=== PATIENT | male | born 1980 | race Caucasian/White ===

== ENCOUNTER 2018-07-03 18:01 | Outpatient (CLI) ==
[2018-07-03 18:21] VITALS: BMI 26.9
== END 2018-07-03 18:09 | disposition short-term general hospital (02) ==
LOC: AMBL 18:01
PROVIDERS: ATTEND Emergency Medicine
DX: M54.5 Low back pain (principal); R51 Headache; S00.91XA Abrasion of unspecified part of head, initial encounter; R07.89 Other chest pain; V89.2XXA Person injured in unspecified motor-vehicle accident, traffic, initial encounter; Z87.820 Personal history of traumatic brain injury

== ENCOUNTER 2018-07-03 18:15 | Emergency (ER) ==
[2018-07-03 18:21] VITALS: BP 145/94; TEMP 97.6; BMI 26.9
[2018-07-03] MEDS ORDERED: SODIUM CHLORIDE 1,000 ML IV STA (18:40)
[2018-07-03] MEDS ORDERED: TENIVAC IM ONE (18:44)
[2018-07-03] MEDS ORDERED: TORADOL IVP STA (18:45)
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
[2018-07-03] MEDS ORDERED: PERCOCET 10-325 PO STA (20:34)
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
== END 2018-07-03 21:20 | disposition home or self-care (01) ==
LOC: ED 18:15
DX: M54.5 Low back pain (principal); M53.3 Sacrococcygeal disorders, not elsewhere classified; V89.2XXA Person injured in unspecified motor-vehicle accident, traffic, initial encounter
CPT/HCPCS: 36415; 80053; 80306; 80307; 81001; 82150; 83690; 85025; 90471; 90714; 96361; 96374; 99283

== ENCOUNTER 2018-11-04 15:30 | Emergency (ER) ==
[2018-11-04 15:35] VITALS: TEMP 97.6; BMI 30.9
[2018-11-04] MEDS ORDERED: VALIUM PO STA (16:03)
--- NOTE | 2018-11-04 16:27 | CT ---
EXAM: CT BRAIN HISTORY: Pain, seizure TECHNIQUE: CT brain without intravenous contrast. 5-mm axial sections with Reformations. COMPARISON: FINDINGS: Brain is unremarkable without evidence of hemorrhage or large vessel distribution recent i schemic infarction. There is no suggestion of acute hydrocephalus or subdural fluid collection. No mass or mass effect. Cranium has no acute finding. Mastoid processes are aerated. The visualized paranasal sinuses have mild mucosal thickening. are clear. IMPRESSION: No acute intracranial process.
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
[2018-11-04 17:01] VITALS: BP 138/93
== END 2018-11-04 17:01 | disposition home or self-care (01) ==
LOC: ED 15:30
DX: R51 Headache (principal); F41.9 Anxiety disorder, unspecified; Z76.0 Encounter for issue of repeat prescription
CPT/HCPCS: 36415; 80053; 85025; 99283

== ENCOUNTER 2018-11-14 12:58 | Emergency (ER) ==
[2018-11-14 13:03] VITALS: BP 148/103; TEMP 98.4; BMI 31.4
[2018-11-14] MEDS ORDERED: ATIVAN IM STA (13:17)
--- NOTE | 2018-11-14 13:20 | ED.PDOC ---
General ED Provider: Dr. SIRENA MAYERS MD Chief Complaint: Medication Refill Stated Complaint: anxious, wants refill for valium he was given and raN OUT Time Seen by Physician: 01:08 Mode of Arrival: Walk-In Information Source: Patient Exam Limitations: No limitations Primary Care Provider: CELE GTZ Nursing and Triage Documentation Reviewed and Agree: Yes Does patient meet sepsis criteria?: No If yes, has appropriate treatment been initiated?: Yes System Inflammatory Response Syndrome: Not Applicable Sepsis Protocol: For patient's 13 years and over: Temp is 96.8 and below OR 101 and greater Pulse >90 BPM Resp >20/minute Acutely Altered Mental Status Are patient's symptoms suggestive of a new infection, such as: -Pneumonia -Skin, Soft Tissue -Endocarditis -UTI -Bone, Joint Infection -Implantable Device -Acute Abdominal Infection -Wound Infection -Meningitis -Blood Stream Catheter Infection -Unknown Review of Systems - Review Of Systems Constitutional: Reports: No symptoms Eyes: Reports: No symptoms Ears, Nose, Mouth, Throat: Reports: No symptoms Respiratory: Reports: No symptoms Cardiac: Reports: No symptoms GI: Reports: No symptoms : Reports: No symptoms Musculoskeletal: Reports: No symptoms Skin: Reports: No symptoms Neurological: Reports: No symptoms Endocrine: Reports: No symptoms Hematologic/Lymphatic: Reports: No symptoms All Other Systems: Reviewed and Negative Past Medical History - Past Medical History Previously Healthy: No Endocrine: Reports: Unknown Cardiovascular: Reports: Unknown Respiratory: Reports: Unknown Hematological: Reports: Unknown Gastrointestinal: Reports: Unknown Genitourinary: Reports: Unknown Neuro/Psych: Reports: Unknown Musculoskeletal: Reports: Back Pain Cancer: Reports: Unknown - Surgical History General Surgical History: Reports: Unknown - Family History Family History: Reports: Unknown - Social History Smoking Status: Never smoker Hx Substance Use: No Alcohol Screening: None Physical Exam - Physical Exam Appearance: Well-appearing, No pain distress, Well-nourished, Obese Ill-appearing: None Pain Distress: None Eyes: JESSICA ENT: Ears normal, Nose normal, Oropharynx normal Neck: Supple Respiratory: Airway patent, Breath sounds clear, Breath sounds equal, Respirations nonlabored Cardiovascular: RRR, Pulses normal, No rub, No murmur GI/: Soft, Nontender, No masses, Bowel sounds normal, No Organomegaly Musculoskeletal: Normal strength, ROM intact, No edema, No calf tenderness Skin: Warm, Dry, Normal color Neurological: Sensation intact, Motor intact, Reflexes intact, Cranial nerves intact, Alert, Oriented, Focal Deficit Psychiatric: Anxious (AGITITATED TOO) Critical Care Note - Critical Care Note Total Time (mins): 0 Course - Course Vital Signs: Temp Pulse Resp BP Pulse Ox 11/14/18 12:59 98.4 F 94 H 18 148/103 H 97 Departure - Departure Time of Disposition: 01:25 Disposition: AMA Discharge Problem: Anxiety Instructions: Social Anxiety Disorder (ED) Condition: Good Pt referred to PMD for follow-up: Yes IPMP verified?: No Allergies/Adverse Reactions: Allergies No Known Allergies Allergy (Verified 11/14/18 13:04) Home Medications: Ambulatory Orders Cyclobenzaprine HCl [Flexeril] 10 mg PO DAILY 07/03/18 Gabapentin 800 mg PO TID 07/03/18 Buprenorphine HCl/Naloxone HCl [Suboxone 8 mg-2 mg Sl Film] 1 each SL TID Diazepam [Valium] 5 mg PO Q8H #30 tablet 11/04/18 Levetiracetam [Keppra] 500 mg PO BID 11/04/18 Oxcarbazepine [Trileptal] 600 mg PO BID 11/04/18 Naproxen [Naprosyn] 500 mg PO TID 11/14/18
[2018-11-14] MEDS ORDERED: LORAZEPAM ONE (13:21)
== END 2018-11-14 13:41 | disposition left against medical advice (07) ==
LOC: ED 12:58
DX: F41.9 Anxiety disorder, unspecified (principal)
CPT/HCPCS: 99284

== ENCOUNTER 2018-12-17 19:53 | Emergency (ER) ==
[2018-12-17 20:07] VITALS: TEMP 98.4; BMI 28.7
--- NOTE | 2018-12-17 20:29 | ED.PDOC ---
General ED Provider: Dr. MAIKEL VORA Chief Complaint: Non-specific Complaint Stated Complaint: [id number] states that he has a chest pain pointing with two fingerst- to his left upper thorax and suffers from onset of anxiety.Gives a nonspecific. complex history of interupted use of Subaxone.Does not appear to be in a withdrawal.Also denies any withdrawal. Time Seen by Physician: 19:55 Mode of Arrival: Walk-In Information Source: Patient, Family Exam Limitations: No limitations Primary Care Provider: CELE GTZ Nursing and Triage Documentation Reviewed and Agree: Yes Does patient meet sepsis criteria?: No System Inflammatory Response Syndrome: Not Applicable Sepsis Protocol: For patient's 13 years and over: Temp is 96.8 and below OR 101 and greater Pulse >90 BPM Resp >20/minute Acutely Altered Mental Status Are patient's symptoms suggestive of a new infection, such as: -Pneumonia -Skin, Soft Tissue -Endocarditis -UTI -Bone, Joint Infection -Implantable Device -Acute Abdominal Infection -Wound Infection -Meningitis -Blood Stream Catheter Infection -Unknown Cardiovascular Complaint Exam - Chest Pain Complaint/Exam Onset: Gradual Symptoms Are: Still present Timing: Intermittent Length of Chest Pain Episodes: gives a nonspecific timing and onset Initial Severity: Moderate Current Severity: Mild Location: Reports: Left lateral Pain Radiates: Reports: None Character: Reports: Aching Aggravating: Reports: None Alleviating: Reports: Rest Related History: Reports: Similar episode Related Surgical History: Reports: None History of Healthcare-Acquired Pneumonia: Reports: No AMI/ACS Risk Factors: Reports: Hypertension TAD Risk Factors: Reports: Hypertension Pulmonary Embolism Risk Factors: Reports: None Prior Care for this Complaint: No Recent Stress Test: No Recent Echo/LV Function: No JVD Present: No Subcutaneous Emphysema Present: No Diminshed Breath Sounds: No Reproducible Chest Wall Pain: No Bilateral Pulses Present: No Unequal Pulses Noted: No If Risk Factors for AMI/ACS Consider: EKG, Cardiac Enzymes Documents Reviewed: Labs, EKG Differential Diagnoses: Unstable Angina, Aortic Aneurysm, Chest Wall Pain, GI Diseasae Quality Indicators For Acute NV or Cardiac Chest Pain: EKG in 10min. Quality Indicator For Non-Traumatic Chest Pain/Syncope: EKG Performed Review of Systems - Review Of Systems Constitutional: Reports: Other Eyes: Reports: No symptoms Ears, Nose, Mouth, Throat: Reports: No symptoms Respiratory: Reports: No symptoms Cardiac: Reports: No symptoms GI: Reports: No symptoms : Reports: No symptoms Musculoskeletal: Reports: No symptoms, Muscle pain Neurological: Reports: Anxiety Endocrine: Reports: No symptoms Hematologic/Lymphatic: Reports: No symptoms All Other Systems: Reviewed and Negative Past Medical History - Past Medical History Previously Healthy: No Endocrine: Reports: Unknown Cardiovascular: Reports: Unknown Respiratory: Reports: Unknown Hematological: Reports: Unknown Gastrointestinal: Reports: Unknown Genitourinary: Reports: Unknown Neuro/Psych: Reports: Unknown Musculoskeletal: Reports: Back Pain Cancer: Reports: Unknown - Surgical History General Surgical History: Reports: Unknown - Family History Family History: Reports: Unknown - Social History Smoking Status: Never smoker Hx Substance Use: Yes (OPIATES) Alcohol Screening: None - Immunizations Tetanus Shot up to Date: (UNKNOWN) Physical Exam - Physical Exam Appearance: Well-appearing Ill-appearing: Mild Pain Distress: Mild Eyes: JESSICA ENT: Ears normal Neck: Supple Respiratory: Airway patent Cardiovascular: RRR, Pulses normal, No murmur GI/: Soft, Nontender Musculoskeletal: Normal strength Skin: Warm, Dry Neurological: Sensation intact, Motor intact, Alert, Oriented Psychiatric: Affect appropriate Critical Care Note - Critical Care Note Total Time (mins): 0 Course - Course Hematology/Chemistry: 12/17/18 20:45 12/17/18 20:40 Orders, Labs, Meds: Lab Review 12/17/18 12/17/18 20:40 20:45 WBC 7.36 RBC 5.01 Hgb 13.7 L Hct 40.8 L MCV 81.4 MCH 27.3 MCHC 33.6 RDW Coeff of Alise 12.9 Plt Count 254 Immature Gran % (Auto) 0.3 Neut % (Auto) 56.4 Lymph % (Auto) 34.2 Shoshone % (Auto) 4.6 Eos % (Auto) 3.8 Baso % (Auto) 0.7 Immature Gran # (Auto) 0.0 Neut # (Auto) 4.2 Lymph # (Auto) 2.5 Shoshone # (Auto) 0.3 L Eos # (Auto) 0.3 Baso # (Auto) 0.1 Sodium 137.3 Potassium 4.07 Chloride 100.2 Carbon Dioxide 26.8 Anion Gap 14.37 BUN 23.0 H Creatinine 1.35 H Estimated GFR (MDRD) 60.00 BUN/Creatinine Ratio 17.03 Glucose 96.1 Calcium 9.51 Total Bilirubin 0.37 AST 30.1 ALT 21.9 Alkaline Phosphatase 98.7 Total Creatine Kinase 113.3 Troponin I 0.013 Total Protein 8.26 H Albumin 5.24 H Globulin 3.02 Albumin/Globulin Ratio 1.73 Orders Category Date Time Status EKG-(ED ONLY) Stat CARDIO 12/17/18 20:36 Ordered EKG-(ED ONLY) Stat CARDIO 12/17/18 20:37 Ordered ED FAGOTING MACHINE OPERATOR APPLIED .ONCE EMERGENCY 12/17/18 20:36 Active CBC W/ AUTO DIFF Stat LAB 12/17/18 20:45 Completed COMPREHENSIVE METABOLIC PANEL Stat LAB 12/17/18 20:40 Completed CREATINE KINASE Stat LAB 12/17/18 20:40 Completed TROPONIN I Stat LAB 12/17/18 20:40 Completed Diazepam [Valium] MEDS 12/17/18 20:39 Discontinued 5 mg PO ONCE STA CHEST, 1V AP ONLY Stat RADS 12/17/18 20:37 Completed Medications Discontinued Medications Generic Name Dose Route Start Last Admin Trade Name Freq PRN Reason Stop Dose Admin Diazepam 5 mg 12/17/18 20:39 12/17/18 20:45 Valium PO 12/17/18 20:40 5 mg ONCE STA Administration Vital Signs: Temp Pulse Resp BP Pulse Ox 12/17/18 21:30 72 139/91 H 94 L 12/17/18 20:45 161/106 H 12/17/18 20:39 74 13 154/97 H 96 12/17/18 19:53 98.4 F 78 20 168/102 H 97 AXEL Risk Score AXEL Risk Score: Risk Score Odds of by 30D 0 0.1 (0.1-0.2) 1 0.3 (0.2-0.3) 2 0.4 (0.3-0.5) 3 0.7 (0.6-0.9) 4 1.2 (1.0-1.5) 5 2.2 (1.9-2.6) 6 3.0 (2.5-3.6) 7 4.8 (3.8-6.1) Departure - Departure Time of Disposition: 22:20 Disposition: HOME SELF-CARE Discharge Problem: Hypertension Instructions: Anxiety (ED) Condition: Good Pt referred to PMD for follow-up: Yes IPMP verified?: No Allergies/Adverse Reactions: Allergies No Known Allergies Allergy (Verified 12/17/18 20:07) Home Medications: Ambulatory Orders Cyclobenzaprine HCl [Flexeril] 10 mg PO DAILY 07/03/18 Gabapentin 800 mg PO TID 07/03/18 Diazepam [Valium] 5 mg PO Q8H #30 tablet 11/04/18 Levetiracetam [Keppra] 500 mg PO BID 11/04/18 Oxcarbazepine [Trileptal] 600 mg PO BID 11/04/18 Naproxen [Naprosyn] 500 mg PO TID PRN 11/14/18 Hydroxyzine Pamoate 100 mg PO TID 12/17/18 Lacosamide [Vimpat] 200 mg PO BID 12/17/18 Lisinopril [Zestril] 5 mg PO DAILY 12/17/18 Oxcarbazepine [Trileptal] 300 mg PO BID 12/17/18 Sertraline HCl [Zoloft] 1.5 tab PO DAILY 12/17/18 Disposition Discussed With: Patient, Family
[2018-12-17] MEDS ORDERED: VALIUM PO STA (20:39)
--- NOTE | 2018-12-17 21:02 | DI ---
EXAM: One-view chest HISTORY: Chest pain TECHNIQUE: Single frontal view the chest was obtained. FINDINGS: The heart is normal size. Lungs are clear. The pulmonary vasculature appears normal. Th e costophrenic angles are sharp. IMPRESSION: No active cardiopulmonary disease.
[2018-12-17 22:48] VITALS: BP 135/88
== END 2018-12-17 22:49 | disposition home or self-care (01) ==
LOC: ED 19:53
DX: R07.9 Chest pain, unspecified (principal); I10 Essential (primary) hypertension; F41.9 Anxiety disorder, unspecified; Z79.899 Other long term (current) drug therapy
CPT/HCPCS: 36415; 80053; 82550; 84484; 85025; 93005; 93010; 99283

== ENCOUNTER 2019-02-20 10:09 | Outpatient (CLI) | END 2019-02-20 10:10 | disposition home or self-care (01) | LOC: RHC-LAB 10:09 → FCC-LAB 10:10 | PROVIDERS: ATTEND Family Medicine | DX: F19.20 Other psychoactive substance dependence, uncomplicated (principal); R89.2 Abnormal level of other drugs, medicaments and biological substances in specimens from other organs, systems and tissues; Z51.81 Encounter for therapeutic drug level monitoring | CPT/HCPCS: 36415; 80306 ==